=== PATIENT | male | born 1960 ===

== ENCOUNTER 2017-10-12 09:25 | Day surgery (SDC) | payer BC ==
[~2017-10-12] VITALS: Ht 177.8 cm; Wt 108.5 kg
[2018-05-08] MEDS ORDERED: PIRO20 (11:29)
== END 2017-10-12 11:55 | disposition home or self-care (01) ==
LOC: ORSCSDS 09:25
PROVIDERS: Orthopaedic Surgery
PROC: 0LB70ZZ Excision of Right Hand Tendon, Open Approach (ICD-10-PCS; principal; 2017-10-12 10:30)
PROC: 01N54ZZ Release Median Nerve, Percutaneous Endoscopic Approach (ICD-10-PCS; principal; 2017-10-12 10:30)
DX: G56.01 Carpal tunnel syndrome, right upper limb (principal); M67.431 Ganglion, right wrist
CPT/HCPCS: 88304; J0171; J0690; J2250; J3010; J7120

== ENCOUNTER 2018-05-16 07:05 | Day surgery (SDC) | payer BC ==
[~2018-05-16] VITALS: Ht 180.3 cm; Wt 107.0 kg
[~2018-05-16 07:05] MED LIST: PIRO20
== END 2018-05-16 08:52 | disposition home or self-care (01) ==
LOC: ORSCSDS 07:05
PROVIDERS: Orthopaedic Surgery
PROC: 01N54ZZ Release Median Nerve, Percutaneous Endoscopic Approach (ICD-10-PCS; principal; 2018-05-16 08:00)
DX: G56.02 Carpal tunnel syndrome, left upper limb (principal); K21.9 Gastro-esophageal reflux disease without esophagitis; Z79.899 Other long term (current) drug therapy
CPT/HCPCS: J0690; J2250; J3010; J7120

== ENCOUNTER 2018-05-26 20:28 | Emergency (ER) | payer BC ==
[~2018-05-26] VITALS: Ht 177.8 cm; Wt 106.6 kg
[2018-05-26] MEDS ORDERED: IBUP600 PO (21:22)
== END 2018-05-26 21:43 | disposition home or self-care (01) ==
LOC: ER 20:28
DX: S62.310A Displaced fracture of base of second metacarpal bone, right hand, initial encounter for closed fracture (principal); W22.8XXA Striking against or struck by other objects, initial encounter
CPT/HCPCS: 29125; 73130; 99283-25